=== PATIENT | born 1990 | race Caucasian/White ===

== ENCOUNTER 2018-03-14 13:00 | Emergency (ER) | payer BC, SELFPAY ==
[~2018-03-14 13:00] MED LIST: ISOVUE-370 76%-LOCM 1 ML ONE
[2018-03-14] MEDS ORDERED: Ondansetron ODT 8 MG TAB ONE (13:30)
[2018-03-14 13:53] LABS: #Eosinphils 0.1 thou/uL (0.0-0.7); #Lymphocytes 1.8 thou/uL (1.20-3.40); #Monocytes 0.4 thou/uL (0.11-0.59); #Neutrophils 10.2 thou/uL (1.40-6.50); %Basophils 0.3 % (0.0-1.0); %Lymphocytes 14.3 % (21.0-51.0); %Neutrophils 81.4 % (42.0-75.0); Hemoglobin 16.4 g/dL (12.0-18.0); Mean Corpuscular Hemoglobin 27.6 pg (27.0-31.0); Mean Corpuscular Volume 81.2 fl (80.0-99.0); Mean Platelet Volume 7.7 fL (7.4-10.4); Platelet Count 230 thou/uL (130-400); RBC Distribution Width 12.1 % (11.5-14.5); Red Blood Cell (RBC) Count 5.94 mill/uL (4.20-6.10); White Blood Cell (WBC) Count 12.5 thou/uL (4.8-10.8)
[2018-03-14 14:00] LABS: CKMB 2.1 ng/mL (0-6.6); Troponin I Less than 0.010 ng/mL (< 0.028)
[2018-03-14 14:01] LABS: ALT (SGPT) 44 U/L (8-55); AST (SGOT) 27 U/L (5-34); Albumin 4.3 g/dL (3.5-5.0); Alkaline Phosphatase 68 U/L (40-150); Anion Gap 14 mmol/L (10-20); BUN (Urea Nitrogen) 9 mg/dL (7.0-20.6); Bilirubin, Total 0.8 mg/dL (0.2-1.2); CK (CPK) 142 U/L (29-200); Calcium 9.3 mg/dL (7.8-10.44); Carbon Dioxide 24 mmol/L (22-29); Chloride 103 mmol/L (98-107); Estimated GFR-MDRD 83; Globulin 3.2 g/dL (2.4-3.5); Glucose 167 mg/dL (70-105); Potassium 3.9 mmol/L (3.5-5.1); Protein, Total 7.5 g/dL (6.0-8.3); Sodium 137 mmol/L (136-145)
[2018-03-14] MEDS ORDERED: Labetalol HCl 100 MG/20 ML VIAL ONE (14:26)
--- NOTE | 2018-03-14 14:43 | RAD ---
CHEST ONE VIEW: History: Chest pain. FINDINGS: Cardiac silhouette is magnified by projection. Pulmonary vasculature unremarkable. Mediastinum is mid line. No lobar consolidation or evidence of pneumothorax. IMPRESSION: No active cardiopulmonary abnormalities are demonstrated. POS: [facility]
--- NOTE | 2018-03-14 15:16 | CT ---
CT HEAD NONCONTRAST: HISTORY: Headache. FINDINGS: There is no evidence of acute intracranial hemorrhage or infarct. The ventricles appear normal in si ze, shape, and position. There is no mass effect or shift of midline structures. Visualized paranas al sinuses remain well aerated. IMPRESSION: No acute intracranial abnormalities are demonstrated on noncontrast CT head. POS: [facility]
--- NOTE | 2018-03-14 15:19 | CT ---
CTA CHEST ABND ABDOMEN AND PELVIS WITH 3D VOLUME RENDERINGS CTA AORTOGRAM: INDICATION: Hypertension. New-onset chest pain. FINDINGS: There is no evidence of aortic dissection or aneurysm. No periaortic hematoma. Incidental note of hepatic steatosis. No obvious acute pathology of the incidentally imaged portions of the abdomen and upper pelvis. Incidental note of patchy opacities of the lungs bilaterally which may relate to mild volume loss. IMPRESSION: No acute aortic dissection or aneurysm. POS: [facility]
[2018-03-14] MEDS ORDERED: Acetaminophen 500 MG TAB ONE (16:08)
[2018-03-14] MEDS ORDERED: Amlodipine 10 MG TAB PO SCH (18:15)
[2018-03-14] MEDS ORDERED: Lisinopril/Hydrochlorothiazide 20 mg/12.5 mg Tablet PO SCH ×2 (18:15→18:45)
--- NOTE | 2018-03-23 13:12 | EKG ---
Test Reason : Blood Pressure : / mmHG Vent. Rate : 085 BPM Atrial Rate : 085 BPM P-R Int : 158 ms QRS Dur : 092 ms QT Int : 400 ms P-R-T Axes : 043 071 024 degrees QTc Int : 476 ms Normal sinus rhythm Normal ECG Confirmed by WILL WILSON ([id number]), senior technical editor TARIK MENA ([id number]) on 03/23/2018 1:11:35 PM Referred By: Confirmed By:WILL WILSON
== END 2018-03-14 19:42 | disposition home or self-care (01) ==
LOC: ERS 13:00
DX: I10 Essential (primary) hypertension (principal); R11.2 Nausea with vomiting, unspecified; Z79.899 Other long term (current) drug therapy
CPT/HCPCS: 70450; 71045; 71275; 80053; 82550; 82553; 84484; 85025; 93005; 96374; 96376